=== PATIENT | female | born 1970 | race Caucasian/White ===

== ENCOUNTER 2017-06-12 10:18 | Day surgery (SDC) | payer OTHER ==
[2017-06-11 14:29] LABS: HEMOGLOBIN 13.2 g/dL (12.0-16.0)
[2017-06-11 14:30] LABS: HEMATOCRIT 39.2 % (36.0-48.0)
[2017-06-11 14:50] LABS: A/G RATIO 1.2 (0.7-1.9); ALBUMIN 4.3 G/DL (3.5-5.0); ALKALINE PHOSPHATASE 46 U/L (45-117); BUN (BLOOD UREA NITROGEN) 15 MG/DL (6-23); CALCIUM, SERUM 9.1 MG/DL (8.5-10.4); CHLORIDE, SERUM 103 MMOL/L (96-112); CO2 (CARBON DIOXIDE) 31 MMOL/L (24-34); CREATININE 0.77 MG/DL (0.55-1.02); GFR AFRICAN AMERICAN 108 ML/MIN (>=60); GFR NON AFRICAN AMERICAN 93 ML/MIN (>=60); GLOBULIN 3.6 G/DL (2.5-4.1); GLUCOSE, SERUM 99 MG/DL (60-99); SGOT(AST) 13 U/L (5-40); SGPT(ALT) 25 U/L (5-65); SODIUM, SERUM 137 MMOL/L (135-148); TOTAL BILIRUBIN 0.4 MG/DL (0-1.2); TOTAL PROTEIN 7.9 G/DL (6.0-8.5)
[~2017-06-12] VITALS: Ht 160 cm; Wt 61.5 kg
--- NOTE | ~2017-06-12 | OP ---
Record Of Operation [facility] [address] [place]. [address] NAME: PASTORA SUNSHINE : 74 STATUS : [facility]#: [id number] AGE: 47 ADM/REG DATE : 06/12/17 MR#: [id number] REPORT SERV DATE: 06/20/17 DICTATED BY: CRAIG RAO DATE: 06/20/17 REPORT STATUS : Draft TRANSCRIBED BY: MODYayo DATE: 06/20/17 DATE OF PROCEDURE: 06/12/2017 PREOPERATIVE DIAGNOSIS: Left breast cancer. POSTOPERATIVE DIAGNOSIS: Left breast cancer. PROCEDURES: 1. Insertion of right internal jugular venous port. 2. Intraoperative fluoroscopy with interpretation. 3. Intraoperative ultrasound for vein access. INDICATION FOR THE PROCEDURE: Ms. Sunshine is a healthy 47-year-old female, who has a HER-2 positive breast cancer on the left side and we will require neoadjuvant chemotherapy. A port will be placed for use. OPERATIVE FINDINGS: After appropriate consent was on the chart, the patient was taken to the operating room in supine position. She was placed under monitored anesthesia without complication. Ultrasound was placed into the right neck and the internal jugular vein noted in its normal anatomic position and patent. The patient's bilateral neck and chest wall were prepped and draped in the sterile fashion. A draped ultrasound probe was then utilized to revisualize the right internal jugular vein. Local anesthetic was instilled into the soft tissue overlying the vein. The Seldinger needle was used under direct ultrasound guidance to enter the vein on a single pass. Nonpulsatile venous appearing blood was noted in the syringe. The syringe was removed and the wire passed with ease. Fluoroscopy noted the wire to be in good position in the vena cava and the needle was removed. The wire was secured to the drapes for later use. Local anesthetic was utilized to anesthetize the port pocket. An incision was made with a #15 blade and sharp dissection carried down to the level of the fat with Bovie cauterization. The port pocket was created with Bovie cauterization and stay sutures placed at the 3 o'clock and 9 o'clock position of Prolene. These sutures were secured for later use. An 11 blade was utilized to lengthen the small gera in the neck and a tunneling device utilized to create the new subcutaneous tunnel between the port and the neck incision site. The catheter was pulled through the newly created tunnel. The dilator with tear-away sheath were placed over the wire with constant movement of the wire. The vein was dilated. The dilator and wire were removed leaving the sheath in the vein. The catheter was passed into the sheath with no issue and the sheath torn away. The catheter was pulled back to the atriocaval junction using constant fluoroscopy. It was clipped for length at the port pocket and secured to the port with the securing device. The port was noted to aspirate and flush with ease. It was passed with heparinized saline. The port was secured into the port pocket with the two stay sutures. Wound was copiously irrigated with warm saline and hemostasis achieved. The wound was closed in two layers of Monocryl. The skin was cleansed and dried. Dermabond, Telfa, and Tegaderm overlaid. The patient was awoken from anesthesia without complication. She was taken the PACU in stable condition for recovery and a chest x-ray. ESTIMATED BLOOD LOSS: 10 mL. Record Of Operation [address] [address] NAME: PASTORA SUNSHINE : 74 STATUS : [facility] PAT#: [id number] AGE: 47 ADM/REG DATE : 06/12/17 MR#: [id number] REPORT SERV DATE: 06/20/17 DICTATED BY: CRAIG RAO DATE: 06/20/17 REPORT STATUS : Draft TRANSCRIBED BY: JOSE LUIS DATE: 06/20/17 COMPLICATIONS: None. SPECIMENS: None. SANDRA/JOSE LUIS Craig Rao MD / [id number] CC: MD AAYUSH Carrillo SONJA B [facility] Alek Collier III, M.D.
[~2017-06-12 10:18] MED LIST: ALOE VERA JUICE; EXCEDRIN MIGRAINE PO; FIBERCON PO; FLAXSEED OIL1000 MG PO; MULTIVITAMI1 PO; PROBIOTIC PO; TUMERIC PO; VITAMIN D31000 UNIT PO; [UNRECOGNIZED DRUG - OTHER]; [UNRECOGNIZED DRUG - OTHER]
== END 2017-06-12 15:33 | disposition home or self-care (01) ==
LOC: SDC 10:18
PROVIDERS: Surgery Surgical Oncology
PROC: B513YZA Fluoroscopy of Right Jugular Veins using Other Contrast, Guidance (ICD-10-PCS; 2017-06-12)
PROC: B543ZZA Ultrasonography of Right Jugular Veins, Guidance (ICD-10-PCS; 2017-06-12)
PROC: 3E04305 Introduction of Other Antineoplastic into Central Vein, Percutaneous Approach (ICD-10-PCS; 2017-06-12)
PROC: 05HM33Z Insertion of Infusion Device into Right Internal Jugular Vein, Percutaneous Approach (ICD-10-PCS; principal; 2017-06-12 12:15)
DX: C50.012 Malignant neoplasm of nipple and areola, left female breast (principal); G43.909 Migraine, unspecified, not intractable, without status migrainosus; D70.1 Agranulocytosis secondary to cancer chemotherapy; Z88.2 Allergy status to sulfonamides; Z91.040 Latex allergy status; Z88.8 Allergy status to other drugs, medicaments and biological substances; Z90.49 Acquired absence of other specified parts of digestive tract; Z98.890 Other specified postprocedural states; Z79.899 Other long term (current) drug therapy
CPT/HCPCS: 71010; 71020; 76000; 77001; 80053; 84703; 85014; 85018; 93306; A9270-GY; C1751; J0690; J2250; J3010